=== PATIENT | male | born 1970 | race Caucasian/White ===

== ENCOUNTER 2018-03-13 03:02 | Inpatient (IN) | payer OTHER ==
[~2018-03-13] VITALS: Ht 172.7 cm; Wt 110.7 kg
[~2018-03-13 03:02] MED LIST: AUG500 PO; COLACE100 MG PO; FLA500 PO; MOTRIN800 MG PO; NORCO1 TA2 PO
[2018-03-13 04:10] LABS: BASOPHIL % 0.9 % (0-2); PLATELET COUNT 255 x10^3mcL (130-400); RED CELL DISTRIBUTION WIDTH 13.3 % (11.5-14.5)
[2018-03-13 04:14] LABS: CALCIUM 8.7 mg/dL (8.5-10.1); CARBON DIOXIDE 28.2 mmol/L (21-32); CHLORIDE SERUM 103 mmol/L (98-107); CREATININE SERUM 0.9 mg/dL (0.7-1.3); GFR1 > 60 mL/min; GLUCOSE SERUM 125 mg/dL (74-106); POTASSIUM SERUM 3.7 mmol/L (3.5-5.1); SODIUM SERUM 137 mmol/L (136-145)
[2018-03-13 04:23] LABS: ALBUMIN 3.6 g/dL (3.4-5.0); BILIRUBIN TOTAL 1.92 mg/dL (0.20-1.00); TOTAL PROTEIN, SERUM 8.1 g/dL (6.4-8.2)
[2018-03-13 04:24] LABS: ALKALINE PHOSPHATASE 312 U/L (46-116); ALT/SGPT 331 U/L (16-63); AMYLASE 45 U/L (25-115); AST/SGOT 270 U/L (15-37)
[2018-03-13 04:25] LABS: LIPASE 304 IU/L (73-393)
[2018-03-13 09:15] VITALS: BP 141/69
[2018-03-13 09:42] LABS: MAGNESIUM 2.4 mg/dL (1.8-2.4); PHOSPHOROUS 3.1 mg/dL (2.5-4.9)
[2018-03-13 09:43] LABS: T3 TOTAL 1.28 ng/mL
[2018-03-13 09:59] LABS: CHOLESTEROL/HDL RATIO 5.8
[2018-03-13 10:04] LABS: FREE T4 1.08 ng/dL (0.76-1.46); T4(THYROXINE) 8.7 ug/dL (4.7-13.3)
[2018-03-13 11:19] LABS: AMPHETAMINE QUAL UR NONE DETECTED (See below)
[2018-03-13 13:06] LABS: microscopic required? NO
[2018-03-13 13:07] LABS: UA SPECIFIC GRAVITY 1.015 (1.005-1.035); urine erythrocyte NEGATIVE (NEGATIVE)
[2018-03-13 16:44] VITALS: BP 121/66
[2018-03-13 20:55] VITALS: BP 98/50
[2018-03-13 22:31] VITALS: BP 90/53
[2018-03-14] VITALS (7 sets, daily range): BP systolic 88–175; BP diastolic 48–73
[2018-03-14 06:40] LABS: RED CELL DISTRIBUTION WIDTH 13.3 % (11.5-14.5)
[2018-03-14 07:17] LABS: BILIRUBIN TOTAL 6.9 mg/dL (0.20-1.00); CALCIUM 7.8 mg/dL (8.5-10.1); CARBON DIOXIDE 21.7 mmol/L (21-32); MAGNESIUM 1.5 mg/dL (1.8-2.4); PHOSPHOROUS 4.9 mg/dL (2.5-4.9); POTASSIUM SERUM 3.8 mmol/L (3.5-5.1); TOTAL PROTEIN, SERUM 6.6 g/dL (6.4-8.2)
[2018-03-14 07:22] LABS: ALBUMIN 2.7 g/dL (3.4-5.0)
[2018-03-14 07:35] LABS: PLATELET COUNT 125 x10^3mcL (130-400)
[2018-03-14 09:30] LABS: BAND NEUTROPHIL 36 % (0-10); MONOCYTE 3 % (0-7); SEGMENTED NEUTROPHILS 49 % (37-75)
[2018-03-14 09:31] LABS: METAMYELOCTE 7 % (0-2); MYELOCYTE 1 % (0-2); rbc morphology (normal/abnorm) NORMAL (NORMAL)
[2018-03-14 09:32] LABS: PLATELET MORPHOLOGY LARGE PLATELET SEEN
[2018-03-15 05:18] VITALS: BP 110/65
[2018-03-15 07:22] LABS: PLATELET COUNT 103 x10^3mcL (130-400)
[2018-03-15 07:42] LABS: ALKALINE PHOSPHATASE 114 U/L (46-116); ALT/SGPT 190 U/L (16-63); AST/SGOT 90 U/L (15-37); BILIRUBIN TOTAL 1.56 mg/dL (0.20-1.00); CALCIUM 8.2 mg/dL (8.5-10.1); CARBON DIOXIDE 24.5 mmol/L (21-32); CHLORIDE SERUM 112 mmol/L (98-107); CREATININE SERUM 1.2 mg/dL (0.7-1.3); GFR1 > 60 mL/min; GLUCOSE SERUM 95 mg/dL (74-106); MAGNESIUM 2.6 mg/dL (1.8-2.4); PHOSPHOROUS 1.2 mg/dL (2.5-4.9); POTASSIUM SERUM 3.8 mmol/L (3.5-5.1); SODIUM SERUM 144 mmol/L (136-145)
[2018-03-15 07:59] LABS: ALBUMIN 2.4 g/dL (3.4-5.0); TOTAL PROTEIN, SERUM 6.1 g/dL (6.4-8.2)
[2018-03-15 08:47] VITALS: BP 107/69
[2018-03-15 11:52] LABS: BAND NEUTROPHIL 33 % (0-10); BASOPHIL 0 % (0-2); METAMYELOCTE 5 % (0-2); MONOCYTE 5 % (0-7); MYELOCYTE 2 % (0-2); SEGMENTED NEUTROPHILS 50 % (37-75)
[2018-03-15 12:01] VITALS: BP 113/69
[2018-03-15 16:11] VITALS: BP 103/62
[2018-03-15 22:07] VITALS: BP 114/67
[2018-03-16 05:11] VITALS: BP 109/75
[2018-03-16 06:14] LABS: ALKALINE PHOSPHATASE 114 U/L (46-116); ALT/SGPT 134 U/L (16-63); AST/SGOT 46 U/L (15-37); BILIRUBIN TOTAL 1.18 mg/dL (0.20-1.00); CARBON DIOXIDE 25.8 mmol/L (21-32); CHLORIDE SERUM 112 mmol/L (98-107); CREATININE SERUM 0.9 mg/dL (0.7-1.3); GFR1 > 60 mL/min; GLUCOSE SERUM 98 mg/dL (74-106); PHOSPHOROUS 1.8 mg/dL (2.5-4.9); POTASSIUM SERUM 3.6 mmol/L (3.5-5.1); SODIUM SERUM 143 mmol/L (136-145)
[2018-03-16 06:36] LABS: ALBUMIN 2.3 g/dL (3.4-5.0); TOTAL PROTEIN, SERUM 6.1 g/dL (6.4-8.2)
[2018-03-16 08:01] LABS: RED CELL DISTRIBUTION WIDTH 13.8 % (11.5-14.5)
[2018-03-16 08:02] LABS: PLATELET COUNT 116 x10^3mcL (130-400)
[2018-03-16 08:45] VITALS: BP 137/90
[2018-03-16 09:50] LABS: BAND NEUTROPHIL 28 % (0-10); BASOPHIL 0 % (0-2); METAMYELOCTE 5 % (0-2); MONOCYTE 3 % (0-7); MYELOCYTE 1 % (0-2); SEGMENTED NEUTROPHILS 55 % (37-75)
[2018-03-16 09:54] LABS: PLATELET MORPHOLOGY LARGE PLATELET SEEN; ovalocyte/elliptocyte 1+; rbc morphology (normal/abnorm) ABNORMAL (NORMAL)
[2018-03-16 17:20] VITALS: BP 117/74
[2018-03-16 20:07] VITALS: BP 120/72
[2018-03-17 05:07] VITALS: BP 128/78
[2018-03-17 05:42] LABS: PLATELET COUNT 137 x10^3mcL (130-400); RED CELL DISTRIBUTION WIDTH 13.7 % (11.5-14.5)
[2018-03-17 06:54] LABS: CALCIUM 7.6 mg/dL (8.5-10.1); CARBON DIOXIDE 26.6 mmol/L (21-32); CHLORIDE SERUM 109 mmol/L (98-107); CREATININE SERUM 0.9 mg/dL (0.7-1.3); GFR1 > 60 mL/min; GLUCOSE SERUM 95 mg/dL (74-106); MAGNESIUM 1.6 mg/dL (1.8-2.4); PHOSPHOROUS 3.6 mg/dL (2.5-4.9); POTASSIUM SERUM 3.7 mmol/L (3.5-5.1); SODIUM SERUM 143 mmol/L (136-145)
[2018-03-17 07:09] LABS: BAND NEUTROPHIL 12 % (0-10); BASOPHIL 0 % (0-2); METAMYELOCTE 3 % (0-2); MONOCYTE 7 % (0-7); SEGMENTED NEUTROPHILS 60 % (37-75)
[2018-03-17 09:28] VITALS: BP 129/75
[2018-03-17 17:30] VITALS: BP 136/86
[2018-03-17 20:33] VITALS: BP 128/83
[2018-03-18 05:13] VITALS: BP 133/87
[2018-03-18 06:44] LABS: PLATELET COUNT 167 x10^3mcL (130-400); RED CELL DISTRIBUTION WIDTH 13.4 % (11.5-14.5)
[2018-03-18 07:16] LABS: CALCIUM 7.9 mg/dL (8.5-10.1); CARBON DIOXIDE 28.4 mmol/L (21-32); CHLORIDE SERUM 109 mmol/L (98-107); CREATININE SERUM 0.9 mg/dL (0.7-1.3); GFR1 > 60 mL/min; GLUCOSE SERUM 103 mg/dL (74-106); MAGNESIUM 1.9 mg/dL (1.8-2.4); PHOSPHOROUS 3.3 mg/dL (2.5-4.9); POTASSIUM SERUM 3.7 mmol/L (3.5-5.1); SODIUM SERUM 141 mmol/L (136-145)
[2018-03-18 07:21] LABS: BILIRUBIN DIRECT 0.54 mg/dL (0.0-0.2); BILIRUBIN TOTAL 1.03 mg/dL (0.20-1.00); TOTAL PROTEIN, SERUM 6.5 g/dL (6.4-8.2)
[2018-03-18 07:30] LABS: ALBUMIN 2.5 g/dL (3.4-5.0)
[2018-03-18 13:02] LABS: ATYPICAL LYMPH 1 %; BAND NEUTROPHIL 0 % (0-10); BASOPHIL 0 % (0-2); MONOCYTE 20 % (0-7); PLATELET MORPHOLOGY PLATELETS DECREASED; SEGMENTED NEUTROPHILS 68 % (37-75); rbc morphology (normal/abnorm) ABNORMAL (NORMAL)
[2018-03-18] MEDS ORDERED: LEVAQUIN750 MG PO (14:10)
[2018-03-18] MEDS ORDERED: FLA500 PO (14:11)
[2018-03-18 14:33] VITALS: BP 126/76
== END 2018-03-18 16:59 | disposition home or self-care (01) | DRG 862 ==
LOC: ED 03:02 → MU 07:08 → DU 07:08 → MU 07:49 → DU 03-14 19:11 → MU 03-16 11:25
PROVIDERS: Emergency Medicine; Family Medicine; Internal Medicine Gastroenterology
PROC: 0FPB8DZ Removal of Intraluminal Device from Hepatobiliary Duct, Via Natural or Artificial Opening Endoscopic (ICD-10-PCS; principal; 2018-03-18 08:00)
PROC: 0F798ZZ Dilation of Common Bile Duct, Via Natural or Artificial Opening Endoscopic (ICD-10-PCS; 2018-03-18 08:00)
PROC: BF101ZZ Fluoroscopy of Bile Ducts using Low Osmolar Contrast (ICD-10-PCS; 2018-03-18 08:00)
PROC: 0FC98ZZ Extirpation of Matter from Common Bile Duct, Via Natural or Artificial Opening Endoscopic (ICD-10-PCS; 2018-03-18 08:00)
DX: T85.858A Stenosis due to other internal prosthetic devices, implants and grafts, initial encounter (principal); N17.0 Acute kidney failure with tubular necrosis; A41.9 Sepsis, unspecified organism; E43 Unspecified severe protein-calorie malnutrition; R65.10 Systemic inflammatory response syndrome (SIRS) of non-infectious origin without acute organ dysfunction; E83.42 Hypomagnesemia; K80.30 Calculus of bile duct with cholangitis, unspecified, without obstruction; R74.0 Nonspecific elevation of levels of transaminase and lactic acid dehydrogenase [LDH]; Y83.8 Other surgical procedures as the cause of abnormal reaction of the patient, or of later complication, without mention of misadventure at the time of the procedure; E78.5 Hyperlipidemia, unspecified; E66.9 Obesity, unspecified; Z68.37 Body mass index [BMI] 37.0-37.9, adult; Z90.49 Acquired absence of other specified parts of digestive tract; Z83.3 Family history of diabetes mellitus; Y92.89 Other specified places as the place of occurrence of the external cause
CPT/HCPCS: 43260; 76001; 83880; 84439; C1769; C2625; J1610; J1885; J1956; J2250; J2405; J2543; J2704; J2765; J3010; J3475; J3490; J7030; J7120; Q0092; Q9967